=== PATIENT | female | born 2000 | race Caucasian/White ===

== ENCOUNTER 2025-05-29 20:30 | Emergency (ER) | payer MEDICAID, SELFPAY ==
[2025-05-29 20:34] VITALS: BP 114/75; PULSE 95; RESP 18; TEMP 36.8; O2SAT 100; BMI 34.0
--- NOTE | 2025-05-29 20:43 | ED.GENADULT ---
HPI - General Adult General Chief complaint: General Medical Stated complaint: PHY SYMPTOMS, NOT ON MEDICATION Time Seen by Provider: 05/29/25 20:41 Source: patient, RN notes reviewed and old records reviewed Mode of arrival: ambulatory Limitations: no limitations History of Present Illness ED Provider: Maribel LICEA narrative: 25-year-old female presents for evaluation of ?I can not get my medications until Sunday. ? Patient reports that she is starting that [email or web address] program She reports that her medications were sent to the wrong pharmacy and she will not have them through until Sunday. She last took her medications yesterday. She takes trazodone 200 mg at bedtime, Cogentin 1 mg at bedtime, escitalopram 20 mg daily, olanzapine 5 mg twice daily and olanzapine 15 mg at bedtime, hydroxyzine 50 mg q.i.d.. She is requesting medications to the weekend Denies any suicidal ideation Related Data Previous Rx's ?Medication ?Instructions ?Recorded benztropine 1 mg tablet 1 mg PO DAILY #7 tabs 05/29/25 escitalopram oxalate 20 mg tablet 20 mg PO DAILY #7 tabs 05/29/25 hydroxyzine pamoate 50 mg capsule 50 mg PO QID #28 caps 05/29/25 olanzapine 15 mg tablet 15 mg PO BEDTIME #7 tabs 05/29/25 olanzapine 5 mg tablet 5 mg PO BID #14 tabs 05/29/25 trazodone 300 mg tablet 300 mg PO BEDTIME #7 tabs 05/29/25 Allergies Allergy/AdvReac Type Severity Reaction Status Date / Time Sulfa (Sulfonamide AdvReac Hives Verified 05/29/25 20:35 Antibiotics) Review of Systems Constitutional: Constitutional: Denies body ache(s), Denies chills, Denies fever(s) and Denies headache(s) Eyes: Eyes: Denies blurry vision and Denies irritation ENT: Denies headache(s) Cardiovascular: Cardiovascular: Denies chest pain and Denies dyspnea on exertion Respiratory: Respiratory: Denies cough and Denies dyspnea on exertion Gastrointestinal: Gastrointestinal: Denies abdominal pain Musculoskeletal: Musculoskeletal: Denies back pain Integumentary/Breasts: Skin/Breast: Denies rash Neurologic: Denies headache(s) Psychiatric: Psychiatric: Denies anxiety, Denies depression and Denies suicidal ideation Physical Exam ED Vital Signs: Vital Signs - 24 hr 05/29/25 20:34 Temperature 98.3 F Pulse Rate 95 Respiratory Rate 18 Blood Pressure 114/75 Pulse Oximetry 100 Oxygen Delivery Method Room Air BMI result Body Mass Index 34.0 Const General: healthy appearing, comfortable, no acute distress, alert and awake Nutritional Appearance: well nourished Orientation/consciousness: patient oriented x3 HENMT Throat: Yes posterior oropharynx normal Eyes Eyelids: Yes eyelids normal Conjunctivae: conjunctivae normal Sclerae: sclerae normal Corneas: corneas normal Pupils: Equal, round and reactive pupils present EOM: EOMs intact bilaterally Neck Neck: Yes full ROM Resp Effort & Inspection: normal respiratory effort, able to speak in complete sentences and not labored Skin General skin exam: elasticity normal Neuro General: patient oriented x3 Cranial nerves: Yes Equal, round and reactive pupils present and Yes Bilaterally intact EOM present Cognition (Neuro): normal cognition Extrem Other: Moving all extremities well without any obvious deformities Medical Decision Making Medical Decision Making MDM Narrative: I was able to confirm the patient's medications and dosages last filled through [facility]. I gave the patient a week's worth of her prescriptions to hold her over until she can get her pharmacy sorted out. She has no somatic complaints, she is well-appearing, vital signs are stable. No workup indicated at this time. The patient is not suicidal. She was given a dose of her medications in the ER prior to discharge because her pharmacy will not be open until 9:00 a.m. tomorrow morning Differential Diagnosis Differential Diagnoses: The differential diagnosis associated with the presentation includes Anxiety Depression Insomnia Medication noncompliance Med refill Discharge Plan Discharge Clinical Impression: Anxiety, Depression, Insomnia Patient Disposition: Home, Self-Care Instructions: Depression (ED), Insomnia (ED), Anxiety (ED) Additional Instructions: Take your medications as prescribed. Follow up with your primary doctor, return for any new or worsening symptoms Prescriptions: New escitalopram oxalate 20 mg tablet 20 mg PO DAILY Qty: 7 0RF olanzapine 5 mg tablet 5 mg PO BID Qty: 14 0RF hydroxyzine pamoate 50 mg capsule 50 mg PO QID Qty: 28 0RF benztropine 1 mg tablet 1 mg PO DAILY Qty: 7 0RF trazodone 300 mg tablet 300 mg PO BEDTIME Qty: 7 0RF olanzapine 15 mg tablet 15 mg PO BEDTIME Qty: 7 0RF Print Language: Latvian
[2025-05-29 20:56] VITALS: BP 114/75; PULSE 95; RESP 18; TEMP 36.8; O2SAT 100
== END 2025-05-29 20:56 | disposition home or self-care (01) ==
PROVIDERS: Emergency Provider Emergency Medicine; PCP Internal Medicine
DX: F41.9 Anxiety disorder, unspecified (principal); F32.A Depression, unspecified; G47.00 Insomnia, unspecified; Z76.0 Encounter for issue of repeat prescription
CPT/HCPCS: 99284

== ENCOUNTER 2025-05-31 08:03 | Emergency (ER) | payer MEDICAID, SELFPAY ==
[2025-05-31 08:13] VITALS: BP 112/73; PULSE 89; RESP 18; TEMP 37; O2SAT 98; BMI 34.4
--- NOTE | 2025-05-31 09:37 | ED.GENADULT ---
HPI - General Adult General Chief complaint: General Medical Stated complaint: back pain and med issues Time Seen by Provider: 05/31/25 09:05 Related Data Previous Rx's ?Medication ?Instructions ?Recorded benztropine 1 mg tablet 1 mg PO DAILY #7 tabs 05/29/25 escitalopram oxalate 20 mg tablet 20 mg PO DAILY #7 tabs 05/29/25 hydroxyzine pamoate 50 mg capsule 50 mg PO QID #28 caps 05/29/25 olanzapine 15 mg tablet 15 mg PO BEDTIME #7 tabs 05/29/25 olanzapine 5 mg tablet 5 mg PO BID #14 tabs 05/29/25 trazodone 300 mg tablet 300 mg PO BEDTIME #7 tabs 05/29/25 Allergies Allergy/AdvReac Type Severity Reaction Status Date / Time Sulfa (Sulfonamide AdvReac Hives Verified 05/31/25 08:18 Antibiotics) PMFSH Social History Social History Smoked in Last 30 Days: Yes Use of substances other than those prescribed or required for medical reasons: No Advance Directives: No Advance Directives Information Provided: Yes Do you have a plan to hurt others: No Plan Patient : No Physical Exam ED Vital Signs: Vital Signs - 24 hr 05/31/25 08:13 Temperature 98.6 F Pulse Rate 89 Respiratory Rate 18 Blood Pressure 112/73 Pulse Oximetry 98 Oxygen Delivery Method Room Air BMI result Body Mass Index 34.4 Discharge Plan Discharge Prescriptions: No Action escitalopram oxalate 20 mg tablet 20 mg PO DAILY Qty: 7 0RF olanzapine 5 mg tablet 5 mg PO BID Qty: 14 0RF hydroxyzine pamoate 50 mg capsule 50 mg PO QID Qty: 28 0RF benztropine 1 mg tablet 1 mg PO DAILY Qty: 7 0RF trazodone 300 mg tablet 300 mg PO BEDTIME Qty: 7 0RF olanzapine 15 mg tablet 15 mg PO BEDTIME Qty: 7 0RF Print Language: Malagasy
--- NOTE | 2025-05-31 09:38 | ED.BACK ---
HPI - Back Pain/Injury General Chief Complaint: General Medical Stated Complaint: back pain and med issues Time Seen by Provider: 05/31/25 09:05 Source: patient Mode of arrival: ambulatory Limitations: no limitations History of Present Illness ED Provider: giovana shafer np HPI Narrative: Patient is a 25-year-old female who presents emergency department for evaluation. Initial nursing triage reports that she is requesting assistance with medication refill, she was seen 05/29/2025 routine prescriptions were sent to [facility] which was closed, they deliver medications to her current residence, [facility], [place]. Medications within sent to [facility] pharmacy on [facility] [address] [facility], evidently she still had some trouble getting his medications filled. When asked, she states that she spoke with her boyfriend who actually found her medications at home and is going to coordinate taking those medications until they are delivered. Offered to contact [facility] pharmacy to facilitate prescriptions otherwise she however declines. She states she is rather here to have her back pain addressed. She has been experiencing diffuse lower back pain described as a muscle spasm acute on chronic over the past 3 weeks. States that she injured her back many years ago and has intermittent pain associated with this. She was trying to stretch today and she felt worsening of her pain. Denies recent overt precipitating injury, fevers, chills, burning with micturition, urinary frequency/urgency/hesitancy, bladder or bowel dysfunction, numbness or tingling of the perineum or bilateral legs. Denies any recent surgical procedures, any known immune compromising conditions, personal history of cancer, or IV drug usage. Denies concern for , endorsing not sexually active for many months. She has trialed Tylenol, ibuprofen, Lidoderm patches without relief MD elicited complaint: back pain Related Data Previous Rx's ?Medication ?Instructions ?Recorded benztropine 1 mg tablet 1 mg PO DAILY #7 tabs 05/29/25 escitalopram oxalate 20 mg tablet 20 mg PO DAILY #7 tabs 05/29/25 hydroxyzine pamoate 50 mg capsule 50 mg PO QID #28 caps 05/29/25 olanzapine 15 mg tablet 15 mg PO BEDTIME #7 tabs 05/29/25 olanzapine 5 mg tablet 5 mg PO BID #14 tabs 05/29/25 trazodone 300 mg tablet 300 mg PO BEDTIME #7 tabs 05/29/25 cyclobenzaprine 5 mg tablet 5 mg PO BEDTIME PRN muscle spasm 05/31/25 #10 tabs Allergies Allergy/AdvReac Type Severity Reaction Status Date / Time Sulfa (Sulfonamide AdvReac Hives Verified 05/31/25 08:18 Antibiotics) Review of Systems Review of Systems: Yes all other systems are reviewed and are negative [facility] Past Medical History Attestation statement: The following information was validated with the patient. Source: old records reviewed Social History Social History Smoked in Last 30 Days: Yes Use of substances other than those prescribed or required for medical reasons: No Advance Directives: No Advance Directives Information Provided: Yes Do you have a plan to hurt others: No Plan Patient : No Physical Exam Vital Signs: Vital Signs: Last Vital Signs Temp 98.6 F 05/31/25 09:47 Pulse 89 05/31/25 09:47 Resp 18 05/31/25 09:47 BP 112/73 05/31/25 09:47 Pulse Ox 98 05/31/25 09:47 O2 Del Method Room Air 05/31/25 09:47 BMI result Body Mass Index 34.4 Appearance: Alert.?Oriented to person, place and time. No acute distress.?Normal affect. Eyes: Pupils equal, round and reactive to light.? ENT: Pharynx normal.?? Neck: Normal inspection.? Neck supple.?? CVS: Heart sounds normal. Normal heart rate and rhythm.? Pulses normal; bilateral radial pulses 2+, bilateral posterior tibial/dorsalis pedis pulses 2+.? Respiratory: No respiratory distress.? Lung sounds clear to auscultation bilaterally?? Abdomen: Soft and non-tender. Normoactive bowel sounds. ?? Skin: Skin warm and dry.? Normal skin color.? Extremities: No lower extremity edema.? No calf ttp? Back: + mild bilateral paraspinal muscular tenderness from lumbar region to coccyx. No CVA tenderness. No midline spinal tenderness, step-off's, or deformity. Full ROM intact in bilateral lower extremities. Straight leg test negative on right; Straight leg test negative on left. No rashes, lesions, areas of induration or fluctuance, or signs of infection noted., Neuro: Moves all extremities spontaneously. 5/5 strength in hip extension/flexion, abduction, adduction. Sensation to light touch intact bilaterally. Patellar and Achilles reflex 2+ bilaterally. No ataxia, gait normal and steady.. No focal neuro deficits. Medical Decision Making Medical Decision Making MDM Narrative: Patient is a 25-year-old female with past medical history of depression, anxiety who presents emergency department for evaluation of lower back pain as per HPI. Based on history and physical examination, pain is most consistent with muscular pain acute on chronic, although cannot completely exclude herniated disc. On neurological exam there are no deficits. Atraumatic in nature, no acute bony tenderness, unlikely to be spinal fracture. Exam findings not consistent with cauda equina syndrome. No recent fevers, unintentional weight loss, history of IVDA, high-risk past medical history, immunosuppression, recent surgery or lumbar puncture to suggest spinal infection, epidural abscess, malignancy. No genitourinary symptoms, afebrile, no CVA tenderness, unlikely urinary tract infection, pyelonephritis, renal colic. No history of nephrolithiasis/ureteral calculi. Declines testing reports not sexually active for many months, lower suspicion for ectopic especially given duration of symptoms. Plan for discharge home with prescription for cyclobenzaprine as she has not had relief from acetaminophen and ibuprofen and Lidoderm patch in addition to conservative treatments, and follow-up with primary care provider, and patient agreed with plan. Differential Diagnosis Differential Diagnoses: The differential diagnosis associated with the presentation includes ( see narrative above) External Record Review External record reviewed: Outpatient record Tests considered The following testing was considered but not selected: See narrative above, would defer emergent CT/MRI of the spine Prescription Management I considered prescription management with: Pain Medication Social Determinants Patient?s care significantly limited by Social Determinants of Health including: Alcoholism and drug addiction in family Discharge Plan Discharge Clinical Impression: Lumbar strain Qualifiers: Encounter type: initial encounter Qualified Code(s): S39.012A - Strain of muscle, fascia and tendon of lower back, initial encounter Patient Disposition: Home, Self-Care Instructions: Low Back Strain (ED), Lower Back Exercises (ED) Additional Instructions: Please be sure to rest over the next few days apply ice/heat for 10-15 minutes 4-6 times daily. You can take ibuprofen 200 mg, 3 tablets (600mg) every 6-8 hours as needed for pain, in addition to Tylenol 500 mg, 2 tablets (1,000mg) every 4-6 hours as needed for pain, but not to exceed 3 doses daily (3,000mg).? I have sent a prescription for cyclobenzaprine/Flexeril which is a muscle relaxer to your pharmacy. This medication may make you drowsy. You should not drive, drink alcohol, or work while taking this medication. As discussed, given duration of your symptoms, you may consider outpatient follow-up with your primary care doctor, they may consider referral for physical therapy, you are welcome to seek care with a chiropractor at your discretion. We talked about your routinely prescribed medications, it appears you have a solution in place with your boyfriend to get your medications until variable to be delivered from [facility]. Prescriptions: New cyclobenzaprine 5 mg tablet 5 mg PO BEDTIME PRN (Reason: muscle spasm) Qty: 10 0RF No Action escitalopram oxalate 20 mg tablet 20 mg PO DAILY Qty: 7 0RF olanzapine 5 mg tablet 5 mg PO BID Qty: 14 0RF hydroxyzine pamoate 50 mg capsule 50 mg PO QID Qty: 28 0RF benztropine 1 mg tablet 1 mg PO DAILY Qty: 7 0RF trazodone 300 mg tablet 300 mg PO BEDTIME Qty: 7 0RF olanzapine 15 mg tablet 15 mg PO BEDTIME Qty: 7 0RF Referrals: Hillary Rosenbaum MD [Primary Care Provider, Internal Medicine] Interventions: ED Discharge Assessment Last Done: 05/31/25 09:47 Discharge Date/Time: 05/31/25 09:48 Print Language: Zimbabwean
[2025-05-31 09:47] VITALS: BP 112/73; PULSE 89; RESP 18; TEMP 37; O2SAT 98
== END 2025-05-31 09:48 | disposition home or self-care (01) ==
PROVIDERS: Emergency Provider Emergency Medicine; PCP Internal Medicine
DX: S39.012A Strain of muscle, fascia and tendon of lower back, initial encounter (principal); X58.XXXA Exposure to other specified factors, initial encounter; Y93.9 Activity, unspecified; Y92.9 Unspecified place or not applicable; Y99.8 Other external cause status
CPT/HCPCS: 99283